=== PATIENT | male | born 1980 | race Caucasian/White ===

== ENCOUNTER 2021-05-08 20:04 | Emergency (ER) | payer OTHER, BC ==
[~2021-05-08] VITALS: Ht 185.4 cm; Wt 102.0 kg
[2021-05-08] MEDS ORDERED: HYDROCODON-ACE1 EA10 PO (23:29)
== END 2021-05-09 00:01 | disposition home or self-care (01) ==
LOC: ED 20:04
DX: S20.212A Contusion of left front wall of thorax, initial encounter (principal); W22.8XXA Striking against or struck by other objects, initial encounter; Y93.72 Activity, wrestling
CPT/HCPCS: 71046; 74177; 80053; 82150; 83690; 85025; 99284-25